=== PATIENT | female | born 1990 | race Caucasian/White ===

== ENCOUNTER 2020-03-11 06:12 | Outpatient (REF) | payer OTHER, SELFPAY | END 2020-03-11 06:13 | disposition home or self-care (01) | LOC: HO.LAB 06:12 | PROVIDERS: PCP Internal Medicine; Visit Provider Internal Medicine | DX: Z20.828 Contact with and (suspected) exposure to other viral communicable diseases (principal) | CPT/HCPCS: 87635 ==

== ENCOUNTER 2020-03-18 06:08 | Outpatient (REF) | payer OTHER, SELFPAY | END 2020-03-18 06:09 | disposition home or self-care (01) | LOC: HO.LAB 06:08 | PROVIDERS: PCP Internal Medicine; Visit Provider Internal Medicine | DX: Z20.828 Contact with and (suspected) exposure to other viral communicable diseases (principal) | CPT/HCPCS: 87635 ==

== ENCOUNTER 2020-06-07 10:41 | Outpatient (REF) | payer OTHER, SELFPAY | END 2020-06-07 10:42 | disposition home or self-care (01) | LOC: HO.LAB 10:41 | PROVIDERS: Visit Provider Internal Medicine | DX: Z20.822 Contact with and (suspected) exposure to COVID-19 (principal) | CPT/HCPCS: 36415; C9803; U0003 ==

== ENCOUNTER 2020-09-04 13:03 | Emergency (ER) | payer OTHER, SELFPAY ==
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
[2020-09-04 13:10] VITALS: BP 160/90; PULSE 100; O2SAT 100
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
[2020-09-04 14:38] VITALS: BP 140/82; PULSE 92; RESP 20; TEMP 36.9; O2SAT 97; BMI 32.3
[2020-09-04] MEDS: Cyclobenzaprine HCl 5 MG TABLET PO (14:45)
[2020-09-04] MEDS: Acetaminophen 325 MG TABLET 650 MG PO (14:45)
[2020-09-04] MEDS: traMADoL HCL 50 MG TABLET PO (17:52)
== END 2020-09-04 17:58 | disposition home or self-care (01) ==
PROVIDERS: Emergency Provider Emergency Medicine; PCP Internal Medicine
DX: S16.1XXA Strain of muscle, fascia and tendon at neck level, initial encounter (principal); V43.52XA Car driver injured in collision with other type car in traffic accident, initial encounter; W22.11XA Striking against or struck by driver side automobile airbag, initial encounter; R07.89 Other chest pain; M79.10 Myalgia, unspecified site; R51.9 Headache, unspecified; Y93.89 Activity, other specified; Y92.414 Local residential or business street as the place of occurrence of the external cause; Y99.9 Unspecified external cause status
CPT/HCPCS: 70450; 71101; 72125; 73000; 99283; 99284

== ENCOUNTER 2022-08-02 10:23 | Emergency (ER) | payer OTHER, SELFPAY ==
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
[2022-08-02 10:36] VITALS: BP 107/72; PULSE 82; RESP 20; TEMP 36.5; O2SAT 97; BMI 28.1
[2022-08-02] MEDS: Diphth,Pertus(ACell),Tet Adult 0.5 ML SYRINGE IM (15:11)
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
== END 2022-08-02 17:24 | disposition home or self-care (01) ==
PROVIDERS: Emergency Provider Emergency Medicine; PCP Internal Medicine
DX: S00.81XA Abrasion of other part of head, initial encounter (principal); Y04.8XXA Assault by other bodily force, initial encounter; R51.9 Headache, unspecified; Y93.9 Activity, unspecified; Y92.9 Unspecified place or not applicable; Y99.9 Unspecified external cause status
CPT/HCPCS: 70450; 70486; 72125; 90471; 90715; 99282; 99283; 99284

== ENCOUNTER 2023-03-19 02:36 | Emergency (ER) | payer OTHER, SELFPAY ==
--- NOTE | 2023-03-19 | ECG_ITS ---
Test Reason : CHEST PAIN Blood Pressure : / mmHG Vent. Rate : 078 BPM Atrial Rate : 078 BPM P-R Int : 148 ms QRS Dur : 068 ms QT Int : 376 ms P-R-T Axes : 049 009 017 degrees QTc Int : 428 ms Normal sinus rhythm Normal ECG No previous ECGs available Referred By: Generic ED Physician Electronically Signed By:ANDRES SEGURA MD
--- NOTE | ~2023-03-19 | XR_ITS ---
EXAMINATION: XR CHEST CLINICAL INFORMATION: Acute right-sided pain COMPARISON: 09/04/2020 TECHNIQUE: Frontal view of the chest was obtained. FINDINGS: The lungs are clear with no focal consolidation. No evidence of pneumothorax, pulmonary edema, or pleural effusions. The cardiomediastinal silhouette is unremarkable. No acute osseous findings. XR/XR chest 1V IMPRESSION: No acute cardiopulmonary findings.
[2023-03-19 02:55] VITALS: BP 122/81; PULSE 77; RESP 16; TEMP 36.5; O2SAT 98; BMI 28.3
[2023-03-19 03:52] LABS: COVID-19 Test Negative (Negative); IDNOW Serial# 08D9AD1C; IDNOW Serial# BCCEAD1C; Influenza A Negative (Negative); Influenza B2 Negative (Negative)
--- NOTE | 2023-03-19 07:27 | ED_ITS ---
HPI - Chest Pain General Chief Complaint: Chest Pain Stated Complaint: Sharp rib cage pain Time Seen by Provider: 03/19/23 07:10 Source: patient Mode of arrival: ambulatory Limitations: no limitations History of Present Illness HPI narrative: Patient been coughing last 2 weeks which is getting better now 5 days ago patient coughed and noticed pain in the right lower ribs area since then having pain which seems she takes a deep breath no abdominal pain no nausea no vomiting no shortness of breath Related Data Previous Rx's Medication Instructions Recorded acetaminophen 500 mg tablet 500 mg PO Q6H PRN pain or fever 09/04/20 (Tylenol Extra Strength) #20 tabs cyclobenzaprine 5 mg tablet 5 mg PO Q8H PRN pain (scale score 09/04/20 7-10) 5 days #14 tabs lidocaine 5 % topical patch 1 patch topical DAILY PRN pain #30 09/04/20 (Lidoderm) ea naproxen 500 mg tablet 500 mg PO BID PRN pain 10 days #20 09/04/20 tabs neomycin-bacitracn Zn-polymyx 3.5 1 appl topical BID #28.3 grams 09/04/20 mg-400 unit-5,000 unit/gram top oint (Neosporin ([id number])) tramadol 50 mg tablet 50 mg PO Q8H PRN pain, severe 3 09/04/20 days #9 tabs bacitracin 500 unit/gram topical 1 appl topical TID 7 days #28 grams 08/02/22 ointment naproxen 500 mg tablet 500 mg PO BID PRN pain 7 days #14 08/02/22 tabs tramadol 50 mg tablet 50 mg PO Q6H PRN pain #20 tabs 03/19/23 Allergies Allergy/AdvReac Type Severity Reaction Status Date / Time metformin AdvReac Diarrhea Verified 03/19/23 03:04 Review of Systems Review of Systems: Yes all other systems are reviewed and are negative PMFSH Social History Social History Alcohol intake: current Alcohol intake frequency: a few times a week Smoked in Last 30 Days: Yes Use of substances other than those prescribed or required for medical reasons: No Advance Directives: No Advance Directives Information Provided: Yes Physical Exam Vital Signs: Vital Signs: Last Vital Signs Temp 97.7 F 03/19/23 02:55 Pulse 80 03/19/23 07:39 Resp 18 03/19/23 07:39 BP 130/93 H 03/19/23 07:39 Pulse Ox 98 03/19/23 07:39 O2 Del Method Room Air 03/19/23 07:39 BMI result Body Mass Index 28.3 Appearance: Alert. Oriented X3. No acute distress. ENT: Pharynx normal. Oral Mucosa moist Neck: Normal inspection. Neck supple. CVS: Normal heart rate and rhythm. Pulses normal. Respiratory: No respiratory distress. Equal air entry bilateral, no wheezing/rales/rhonchi right chest wall lower rib tenderness no crepitus no deformity Abdomen: Soft and nontender. Bowel sounds are present, no mass palpable, no CVA tenderness Skin: Skin warm and dry. Normal skin color. Normal skin turgor. Extremities: No lower extremity edema. No calf tenderness Neuro: Oriented X 3. Medications Administered Discontinued Medications Generic Name Dose Route Start Last Admin Trade Name Freq PRN Reason Stop Dose Admin Tramadol HCl 50 mg 03/19/23 07:27 03/19/23 07:42 Tramadol Hcl 50 Mg Tablet PO 03/19/23 07:28 50 mg ONCE ONE Administration Medical Decision Making Medical Decision Making MDM Narrative: Patient's x-ray negative for fracture or pneumonia pain is musculoskeletal discharge patient home or possible minor rib fracture Differential Diagnosis Differential Diagnoses: The differential diagnosis associated with the presentation includes Rib fracture/pleurisy/pneumonia/ Lab Data [facility] Lab Attestation statement: I reviewed the patient's lab results. Labs: Lab Results 03/19/23 Range/Units 03:29 COVID-19 (ARELIS) Negative (Negative) COVID-19 Clin Com See Note Influenza Type A (JAMILA) Negative (Negative) Influenza Type B (JAMILA) Negative (Negative) Influenza A & B Note See Note Radiology Impression Discussion of test interpretation with radiology: I have reviewed the radiologist's reading. Discharge Plan Discharge Clinical Impression: Right-sided chest wall pain Patient Disposition: Home, Self-Care Instructions: Noncardiac Chest Pain (ED) Additional Instructions: Take pain medication as prescribed Likely have right lower rib muscle strain Prescriptions: New tramadol 50 mg tablet 50 mg PO Q6H PRN (Reason: pain) Qty: 20 0RF No Action acetaminophen [Tylenol Extra Strength] 500 mg tablet 500 mg PO Q6H PRN (Reason: pain or fever) Qty: 20 0RF lidocaine [Lidoderm] 5 % adhesive patch,medicated 1 patch topical DAILY MDD remove after 12 hours PRN (Reason: pain) Qty: 30 0RF Rx Instructions: leave on most painful area for up to 12 hrs naproxen 500 mg tablet 500 mg PO BID PRN (Reason: pain) 10 Days Qty: 20 0RF cyclobenzaprine 5 mg tablet 5 mg PO Q8H PRN (Reason: pain (scale score 7-10)) 5 Days Qty: 14 0RF tramadol 50 mg tablet 50 mg PO Q8H PRN (Reason: pain, severe) 3 Days Qty: 9 0RF Neosporin ([id number]-[id number]-[id number]) 3.5mg-400 unit- 5,000 unit/gram ointment 1 appl topical BID Qty: 28.3 0RF naproxen 500 mg tablet 500 mg PO BID PRN (Reason: pain) 7 Days Qty: 14 0RF bacitracin 500 unit/gram ointment 1 appl topical TID 7 Days Qty: 28 0RF Interventions: ED Discharge Assessment Last Done: 03/19/23 07:48 Discharge Date/Time: 03/19/23 07:49
[2023-03-19 07:39] VITALS: BP 130/93; PULSE 80; RESP 18; O2SAT 98
[2023-03-19] MEDS: traMADoL HCL 50 MG TABLET PO (07:42)
== END 2023-03-19 07:49 | disposition home or self-care (01) ==
PROVIDERS: Emergency Provider Internal Medicine
DX: R07.89 Other chest pain (principal); R05.9 Cough, unspecified; Z11.52 Encounter for screening for COVID-19
CPT/HCPCS: 71045; 87502; 87635; 93005; 99283; 99285

== ENCOUNTER 2023-12-15 06:37 | Emergency (ER) | payer OTHER, SELFPAY ==
--- NOTE | ~2023-12-15 | XR_ITS ---
EXAMINATION: XR WRIST, RIGHT CLINICAL INFORMATION: Pain, injury COMPARISON: None available. TECHNIQUE: PA, lateral, and oblique views of the right wrist. FINDINGS: The distal radius, ulna and radioulnar joint are normal. Carpal bones are intact and have normal alignment. The joint spaces of the wrist are maintained. There is no arthritic disease. There is no evidence of a radiopaque foreign body or soft tissue gas. XR/XR wrist RT min 3V IMPRESSION: No acute osseous injury. No fracture or malalignment at the right wrist.
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
[2023-12-15 06:44] VITALS: BP 140/90; BP 169/73; PULSE 79; PULSE 89; RESP 14; TEMP 36.8; O2SAT 99; BMI 28.3
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
[2023-12-15 07:49] VITALS: BP 128/78; PULSE 71; RESP 14; TEMP 36.8; O2SAT 98
[2023-12-15] MEDS: oxyCODONE HCl Immed Release 5 MG TABLET PO (09:18)
[2023-12-15 09:24] VITALS: BP 128/78; PULSE 71; RESP 14; TEMP 36.8; O2SAT 98
== END 2023-12-15 09:25 | disposition home or self-care (01) ==
PROVIDERS: Emergency Provider Emergency Medicine Emergency Medical Services; PCP Internal Medicine Endocrinology, Diabetes & Metabolism
DX: S60.811A Abrasion of right wrist, initial encounter (principal); S09.90XA Unspecified injury of head, initial encounter; V47.5XXA Car driver injured in collision with fixed or stationary object in traffic accident, initial encounter; W22.10XA Striking against or struck by unspecified automobile airbag, initial encounter; Y93.9 Activity, unspecified; Y92.9 Unspecified place or not applicable; Y99.9 Unspecified external cause status; M54.2 Cervicalgia; E11.9 Type 2 diabetes mellitus without complications
CPT/HCPCS: 70450; 72125; 73110; 99284

== ENCOUNTER 2024-07-02 09:44 | Emergency (ER) | payer OTHER, SELFPAY ==
--- NOTE | 2024-07-02 | ECG_ITS ---
Test Reason : CP Blood Pressure : */* mmHG Vent. Rate : 106 BPM Atrial Rate : 106 BPM P-R Int : 122 ms QRS Dur : 68 ms QT Int : 360 ms P-R-T Axes : 23 8 18 degrees QTcB Int : 478 ms Sinus tachycardia with occasional Premature ventricular complexes Possible Left atrial enlargement Borderline ECG When compared with ECG of 19-Mar-2023 03:25, Premature ventricular complexes are now Present Referred By: Generic ED Physician Electronically Signed By: Collin Gan
[2024-07-02 09:52] VITALS: BP 144/71; PULSE 108; RESP 18; TEMP 36.3; O2SAT 100; BMI 33.0
[2024-07-02 10:10] LABS: Baso%MD 0.6 %; Eos%MD 1.2 %; Hematocrit 30.5 % (37.0-47.0); Hemoglobin 10.3 g/dl (12.0-16.0); IG%MD 2.2 %; Lymph%MD 3.4 %; Mean Corpuscular HGB Conc 33.8 g/dl (31.0-35.0); Mean Corpuscular Volume 82.9 fL (80.0-98.0); Mean Platelet Volume 9.1 fL (9.4-12.3); Mono%MD 6.6 %; Platelet Count 211 X10*3/uL (160-400); Red Blood Count 3.68 X10*6/uL (4.20-5.50); Red Cell Distribution Width 13.5 % (11.0-16.0); White Blood Count 12.2 X10*3/uL (4.8-10.8)
[2024-07-02 10:35] LABS: Alanine Aminotransferase 26 U/L (0-31); Albumin Level 3.7 g/dL (3.5-5.0); Alkaline Phosphatase 83 U/L (39-117); Anion Gap 14 (12-20); Aspartate Amino Transferase 37 U/L (5-31); Bilirubin Total 0.3 mg/dL (0.0-1.0); Blood Urea Nitrogen 6 mg/dL (9-16); Calcium 8.4 mg/dL (8.4-10.2); Carbon Dioxide 20 mmol/L (22-29); Chloride 104 mmol/L (96-108); Creatinine Clr Calc Pharmacy 152.7; Estimated Glomerular Filt Rate > 60; Glucose Random 115 mg/dL (60-115); Magnesium 1.5 mg/dL (1.6-2.6); Potassium 3.7 mmol/L (3.3-5.1); Sodium 134 mmol/L (135-145); Total Protein 7.1 g/dL (6.5-8.0)
[2024-07-02 10:43] LABS: Troponin-I High Sensitivity < 2.7 ng/L (<3.5-17.0)
[2024-07-02 10:50] LABS: Band Neutrophils Percent 2 % (3-5); Basophils Abs Manual 0.4 X10*3/uL (0.0-0.2); Basophils Percent Manual 3 % (0-2); Eosinophils Absolute Manual 0.4 X10*3/uL (0.0-0.4); Eosinophils Percent Manual 3 % (0-4); Lymphocytes Absolute Manual 0.1 X10*3/uL (1.2-4.9); Lymphocytes Percent Manual 1 % (20-40); Monocytes Absolute Manual 0.6 X10*3/uL (0.1-1.2); Monocytes Percent Manual 5 % (2-11); Neutrophils Absolute Manual 10.7 X10*3/uL (2.0-8.3); Neutrophils Percent Manual 86 % (45-73)
[2024-07-02 10:52] LABS: RBC Morphology NORMAL
[2024-07-02 10:53] LABS: Platelet Estimate NORMAL (NORMAL); Platelet Morphology Comment NORMAL
[2024-07-02 11:16] LABS: Influenza A PCR POSITIVE (Negative); Influenza B PCR NEGATIVE (Negative); Resp Syncy Virus RNA Qual PCR NEGATIVE (Negative); SARS COV2 PCR INHOUSE NEGATIVE (Negative)
[2024-07-02 11:24] LABS: HCG Quantitative 27220 mIU/mL
[2024-07-02 13:55] VITALS: BP 127/72; PULSE 107; RESP 20; TEMP 36.8; O2SAT 99
--- NOTE | 2024-07-02 13:57 | ED_ITS ---
HPI - Chest Pain General Chief Complaint: Chest Pain Stated Complaint: Chest pain 26 weeks preg Time Seen by Provider: 07/02/24 13:57 History of Present Illness ED Provider: Korina SPARROW narrative: The patient is a 34-year-old female who was approximately 26 weeks . She gets her OBGYN care through [facility]. She says that yesterday evening she became fairly abruptly ill with a sense of fever and chills, body aches, and chest pain. She says that she vomited once this morning. She feels somewhat nauseated. She has had sick contacts at home. One of her children became ill with flu-like symptoms about 3 days ago. Related Data Previous Rx's ?Medication ?Instructions ?Recorded acetaminophen 500 mg tablet 500 mg PO Q6H PRN pain or fever 09/04/20 (Tylenol Extra Strength) #20 tabs cyclobenzaprine 5 mg tablet 5 mg PO Q8H PRN pain (scale score 09/04/20 7-10) 5 days #14 tabs lidocaine 5 % topical patch 1 patch topical DAILY PRN pain #30 09/04/20 (Lidoderm) ea naproxen 500 mg tablet 500 mg PO BID PRN pain 10 days #20 09/04/20 tabs neomycin-bacitracn Zn-polymyx 3.5 1 appl topical BID #28.3 grams 09/04/20 mg-400 unit-5,000 unit/gram top oint (Neosporin (ira-xit-qlaxl)) tramadol 50 mg tablet 50 mg PO Q8H PRN pain, severe 3 09/04/20 days #9 tabs bacitracin 500 unit/gram topical 1 appl topical TID 7 days #28 grams 08/02/22 ointment naproxen 500 mg tablet 500 mg PO BID PRN pain 7 days #14 08/02/22 tabs tramadol 50 mg tablet 50 mg PO Q6H PRN pain #20 tabs 03/19/23 cyclobenzaprine 5 mg tablet 5 mg PO TID PRN pain 7 days #21 12/15/23 tabs oseltamivir 75 mg capsule 75 mg PO BID 5 days #9 caps 07/02/24 Allergies Allergy/AdvReac Type Severity Reaction Status Date / Time metformin AdvReac Diarrhea Verified 07/02/24 09:55 Review of Systems 2 Review of Systems: Yes all other systems are reviewed and are negative [facility] Social History Social History Alcohol intake: current Alcohol intake frequency: a few times a week Smoked in Last 30 Days: No Use of substances other than those prescribed or required for medical reasons: No Advance Directives: No Advance Directives Information Provided: Yes Do you have a plan to hurt others: No Plan Physical Exam 2 Vital Signs: Vital Signs: Last Vital Signs Temp 98.0 F 07/02/24 16:06 Pulse 108 H 07/02/24 16:06 Resp 16 07/02/24 16:06 BP 129/80 07/02/24 16:06 Pulse Ox 98 07/02/24 16:06 O2 Del Method Room Air 07/02/24 13:55 BMI result Body Mass Index 33.0 Const: Other: The patient is awake and alert. She looks as if you have feel somewhat unwell but her mental status is clear and she does not seem in obvious respiratory difficulty or pain. HEENT: Other: Face symmetrical. Mucous membranes are moist. Eyes: General: appearance normal, both eyes and all related structures A lignment and Position: alignment normal Periorbital: periorbital findings normal Eyelids: Yes eyelids normal Conjunctivae: conjunctivae normal S clerae: sclerae normal Pupils: Equal, round and reactive pupils present E OM: EOMs intact bilaterally Neck: Neck: Yes full ROM, Yes no lymphadenopathy and Yes no JVD Resp: Effort & Inspection: normal respiratory effort and able to speak in complete sentences Auscultation: clear to auscultation bilaterally Cardio: Rate: tachycardic Rhythm: regular rhythm Heart sounds: S1 normal heart sound present and S2 normal heart sound present GI: Other: The abdomen is gravid with the fundus of the uterus roughly at the level of the umbilicus. The abdomen is soft and nontender. Who Skin: Other: skin is dry and unremarkable Neuro: Other: the patient is awake and alert with normal mental status. Cranial nerves are intact. She moves her extremities normally and appropriately Cranial nerves: Yes Equal, round and reactive pupils present Extrem: Other: no peripheral edema who Medications Administered Discontinued Medications Generic Name Dose Route Start Last Admin Trade Name Freq PRN Reason Stop Dose Admin Acetaminophen 975 mg 07/02/24 14:01 07/02/24 14:12 Acetaminophen 325 Mg Tablet PO 07/02/24 14:02 975 mg ONCE ONE Administration Oseltamivir Phosphate 75 mg 07/02/24 14:05 07/02/24 14:12 Oseltamivir Phosphate 75 Mg Capsule PO 07/02/24 14:06 75 mg ONCE ONE Administration Medical Decision Making Medical Decision Making [facility] Narrative: the patient is a 34-year-old woman who is approximately 26 weeks started to feel ill yesterday evening. She describes a lot of systemic symptoms and pulmonary symptoms. She does not appear obviously acutely ill. a review of 0 salt time of urine suggest that also time of year in women with influenza is generally thought to be safe and possibly beneficial. The patient was therefore started on oseltamivir. She seemed to feel somewhat better and seemed appropriate for discharge with her family. Lab Data 07/02/24 10:05 07/02/24 10:05 Labs: Lab Results 07/02/24 07/02/24 Range/Units 10:05 14:13 WBC 12.2 H (4.8-10.8) X10*3/uL RBC 3.68 L (4.20-5.50) X10*6/uL Hgb 10.3 L (12.0-16.0) g/dl Hct 30.5 L (37.0-47.0) % MCV 82.9 (80.0-98.0) fL MCH 28.0 (27.0-33.0) pg MCHC 33.8 (31.0-35.0) g/dl RDW 13.5 (11.0-16.0) % Plt Count 211 (160-400) X10*3/uL MPV 9.1 L (9.4-12.3) fL Absolute Nucleated RBC 0.000 (0.0-0.012) X10*3/uL Nucleated RBC % (auto) 0.0 (0.0-0.2) /100WBC Neutrophils % (Manual) 86 H (45-73) % Band Neutrophils % 2 L (3-5) % Lymphocytes % (Manual) 1 L (20-40) % Monocytes % (Manual) 5 (2-11) % Eosinophils % (Manual) 3 (0-4) % Basophils % (Manual) 3 H (0-2) % Abs Neuts (Manual) 10.7 H (2.0-8.3) X10*3/uL Lymphocytes # (Manual) 0.1 L (1.2-4.9) X10*3/uL Monocytes # (Manual) 0.6 (0.1-1.2) X10*3/uL Eosinophils # (Manual) 0.4 (0.0-0.4) X10*3/uL Basophils # (Manual) 0.4 H (0.0-0.2) X10*3/uL Platelet Estimate NORMAL (NORMAL) Plt Morphology Comment NORMAL RBC Morphology NORMAL Sodium 134 L (135-145) mmol/L Potassium 3.7 (3.3-5.1) mmol/L Chloride 104 (96-108) mmol/L Carbon Dioxide 20 L (22-29) mmol/L Anion Gap 14 (12-20) BUN 6 L (9-16) mg/dL Creatinine 0.57 (0.5-1.4) mg/dL Estim Creat Clear Calc 152.7 Estimated GFR > 60 Random Glucose 115 (60-115) mg/dL Calcium 8.4 (8.4-10.2) mg/dL Magnesium 1.5 L (1.6-2.6) mg/dL Total Bilirubin 0.3 (0.0-1.0) mg/dL AST 37 H (5-31) U/L ALT 26 (0-31) U/L Alkaline Phosphatase 83 (39-117) U/L Troponin I High Sens < 2.7 (<3.5-17.0) ng/L Total Protein 7.1 (6.5-8.0) g/dL Albumin 3.7 (3.5-5.0) g/dL Tumor Marker HCG Cancelled Beta HCG, Quant 19367 mIU/mL Urine Color Dark Yellow Urine Appearance Cloudy Urine pH 6.0 (5.0-9.0) Ur Specific [place] >= 1.030 H (1.005-1.025) Urine Protein 30 (1+) H (Neg-Trace) mg/dL Urine Glucose (UA) Negative (Negative) mg/dL Urine Ketones >=160 (Negative) mg/dL Urine Blood Negative (Negative) Urine Nitrite Negative (Negative) Ur Leukocyte Esterase Negative (Negative) Urine RBC 0-2 (0-2) /HPF Urine WBC 0-5 (0-5) /HPF Ur Squamous Epith Cells 11-20 (0-2) /HPF Urine Bacteria 1+ (None Seen) Hyaline Casts 0-2 (0-2) /LPF Urine Test POSITIVE H (NEGATIVE) Influenza Type A (PCR) POSITIVE A (Negative) Influenza Type B (PCR) NEGATIVE (Negative) RSV RNA Qual (PCR) NEGATIVE (Negative) SARS-CoV-2 RNA (RT-PCR) NEGATIVE (Negative) Discharge Plan Discharge Clinical Impression: Influenza A, 26 weeks gestation of Patient Disposition: Home, Self-Care Instructions: Influenza (ED) Additional Instructions: You have tested positive for the flu today. Specifically you have tested positive for influenza A. You has been started on an anti influenza medication oseltamivir. This is a medication generally recommended in . This medication should be taken 2 times a day, approximately every 12 hours. You received your dose at around 14:00 this afternoon. Try to take your next dose around midnight and then the one after that in the morning. You may take acetaminophen as needed for fevers or aches. Please stay in touch with your [facility] obstetrical team for additional advice as needed. Call them if any concerns. If significantly worse return to the emergency room here or go to [facility]. Prescriptions: New oseltamivir 75 mg capsule 75 mg PO BID 5 Days Qty: 9 0RF No Action acetaminophen [Tylenol Extra Strength] 500 mg tablet 500 mg PO Q6H PRN (Reason: pain or fever) Qty: 20 0RF lidocaine [Lidoderm] 5 % adhesive patch,medicated 1 patch topical DAILY MDD remove after 12 hours PRN (Reason: pain) Qty: 30 0RF Rx Instructions: leave on most painful area for up to 12 hrs naproxen 500 mg tablet 500 mg PO BID PRN (Reason: pain) 10 Days Qty: 20 0RF cyclobenzaprine 5 mg tablet 5 mg PO Q8H PRN (Reason: pain (scale score 7-10)) 5 Days Qty: 14 0RF tramadol 50 mg tablet 50 mg PO Q8H PRN (Reason: pain, severe) 3 Days Qty: 9 0RF Neosporin (vui-evi-flnbi) 3.5mg-400 unit- 5,000 unit/gram ointment 1 appl topical BID Qty: 28.3 0RF naproxen 500 mg tablet 500 mg PO BID PRN (Reason: pain) 7 Days Qty: 14 0RF bacitracin 500 unit/gram ointment 1 appl topical TID 7 Days Qty: 28 0RF cyclobenzaprine 5 mg tablet 5 mg PO TID PRN (Reason: pain) 7 Days Qty: 21 0RF tramadol 50 mg tablet 50 mg PO Q6H PRN (Reason: pain) Qty: 20 0RF Referrals: Ethan Kc MD [Primary Care Provider] - (Influenza, ) Stand Alone Forms: Work/School Release Interventions: ED Discharge Assessment Last Done: 07/02/24 16:06 Discharge Date/Time: 07/02/24 16:07 Print Language: Irish
[2024-07-02] MEDS: Oseltamivir Phosphate 75 MG CAPSULE PO (14:12)
[2024-07-02] MEDS: Acetaminophen 325 MG TABLET 975 MG PO (14:12)
[2024-07-02 14:23] LABS: Appearance Urine Cloudy; Color Urine Dark Yellow; Glucose Urine UA Negative (Negative); Leukocyte Esterase Urine Negative (Negative); Nitrite Urine Negative (Negative); Specific Gravity - Urine >= 1.030 (1.005-1.025); UMIC TRIGGER UACC YES; UPreg QC Valid YES; Urine Blood Negative (Negative); Urine Ketones >=160 mg/dL (Negative); Urine Pregnancy POSITIVE (NEGATIVE); Urine Protein 30 (1+) mg/dL (Neg-Trace)
[2024-07-02 14:30] LABS: Bacteria Urine 1+ (None Seen); Hyaline Casts Urine 0-2 /LPF (0-2); RBC Urine 0-2 /HPF (0-2); WBC Urine 0-5 /HPF (0-5)
--- OUTSIDE RECORDS SUMMARY | 2024-07-02 15:06 | XMS_ITS | Clinical Summary ---
Author Organization [facility] Address [address] [place] [address] Care Team Providers Care Scrap Cutter Name Role Phone Napoleon Tineo MD Primary Care Provider [phone] Allergies Active Allergy Reactions Criticality Noted Date Comments Biguanides Diarrhea Low 06/30/2009 Medications Medication Sig Dispensed Refills Start Date End Date Status Vitamin iron fum-folic acid 27-0.8 mg per tablet Take 1 tablet by mouth 1 (one) time each day. 01/19/2024 Active insulin glargine (Lantus Solostar U-100 Insulin) 100 unit/mL (3 mL) injection pen Inject 36 Units under the skin 1 (one) time each day in the morning. 03/20/2024 Active FREESTYLE LANCETS MISC Inject under the skin 1 (one) time each day. 08/19/2023 Active azelastine (OPTIVAR) 0.05 % ophthalmic solution Administer 1 drop into affected eye(s) 2 (two) times a day. 08/09/2023 09/02/2024 Active fluticasone propionate (FLONASE) 50 mcg/actuation nasal spray Administer 2 sprays into affected nostril(s) 1 (one) time each day. 08/09/2023 Active cetirizine (ZyrTEC) 10 mg tablet Take 1 tablet (10 mg total) by mouth 1 (one) time each day. 08/09/2023 Active blood sugar diagnostic (FreeStyle Lite Strips) test strip USE 1 STRIP TO TEST BLOOD SUGARS 3 TIMES DAILY BEFORE MEALS 05/09/2023 Active insulin lispro (HumaLOG KwikPen Insulin) 100 unit/mL injection pen Before meals as directed per sliding scale three times a day, up to 45 units daily. 05/09/2023 Active cyclobenzaprine (FLEXERIL) 10 mg tablet Take 1 tablet (10 mg total) by mouth at bedtime as needed. 09/13/2022 Active blood-glucose meter kit As directed 4 times a day 10/20/2021 Active lidocaine (LIDODERM) 5 % patch Place 1 patch on the skin. 05/14/2021 Active diclofenac (VOLTAREN) 1 % topical gel Apply 4 g topically. 09/26/2020 Active blood-glucose sensor (FREESTYLE DAISY 3 PLUS SENSOR MISC) 1 applicator by Not Applicable route every 14 (fourteen) days. 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 Low back pain radiating to left leg 10/07/2010 Type 2 diabetes mellitus with microalbuminuria 1 07/08/2007 Overview (05/31/2024): [facility] endocrinology Encounters Date Type Department Care Team Description 04/05/2024 Telephone Endocrinology - [address] [place] [address] Ethan Kc MD prior authorization from Last 3 Months Immunizations Name Administration Dates Next Due HPV, Quadrivalent 05/16/2013,01/16/2013,11/15/19 13 Influenza Quadravalent, MDCK , 0.5ml, preservative free (Flucelvax) 6mo and older 02/18/2023 Influenza Quadravalent, MDCK , 0.5ml, with preservative (Flucelvax) 6mo and older 03/21/2017 Influenza trivalent, 0.5mL, preservative free (Fluarix; FluLaval; Fluzone) ages 6mo and older (Afluria) 3 years and older 02/04/2020,03/23/2018,03/17/2016,03/25,04/17/2014,06/08/2012,03/01/2011 ,05/07/2008 Influenza, Unspecified 02/14/2019,03/23/2018 Pneumococcal polysaccharide 23 valent (Pneumovax 23) 2yo and older 06/08/2012 Tdap Tetanus diptheria acell ular pertussis (Boostrix; Adacel) 7yo and older 09/12/2014,11/14/2012 Surgical History Surgery Date Site/Laterality Comments MULTIPLE TOOTH EXTRACTIONS PROCEDURE: HISTORICAL DENTAL EXTRACTION OTHER SURGICAL HISTORY 04/19/2019 Right PROCEDURE: HI CORRECTION COCK-UP 5TH TOE W/PLASTIC CLOSURE; COMMENT: derotational arthroplasty right 5th toe Medical History Medical History Date Comments Historical Medical DX 05/07/2008 DX:Diabete s Diabetic retinopathy ([facility]) 10/29/2014 D X:Diabetic retinopathy ([facility]); COMMENT: 10/16/2014: [facility] (Dr. Moreno) Family History Medical History Relation Name Comments No Known Problems Brother 1 No Known Problems Brother 2 No Known Problems Daughter Diabetes Father No Known Problems Maternal Grandfather No Known Problems Maternal Grandmother di ed in hospital Diabetes Mother No Known Problems Paternal Grandfather No Known Problems Paternal Grandmother No Known Problems Son Breast cancer Neg Hx Colon cancer Neg Hx Heart attack Neg Hx Relation Name Status Comments Brother 1 Alive Brother 2 Alive Daughter Alive Father Alive Maternal Grandfather Maternal Grandmother Mother Alive Paternal Grandfather Paternal Grandmother Son Alive Social History Tobacco Use Types Packs/Day Years Used Date Smoking Tobacco: Never Smokeless Tobacco: Never Alcohol Use Standard Drinks/Week Comments No 0 (1 standard drink = 0.6 oz pur e alcohol) Sex and Gender Information Value Date Recorded Sex Assigned at Not on file Gender Identity Not on file Sexual Orientation Not on file Obstetrics History Last Filed Vital Signs Vital Sign Reading Time Taken Comments Blood Pressure 130/70 02/14/2024 1:21 PM EDT Pulse 85 02/14/2024 1:21 PM EDT Temperature - - Respiratory Rate - - Oxygen Saturation - - Inhaled Oxygen Concentration - - Weight 84.4 kg (186 lb) 02/14/2024 1:21 PM EDT Height 165.1 cm (5' 5 ) 02/14/2024 1:21 PM EDT Body Mass Index 30.95 02/14/2024 1:21 PM EDT Plan of Treatment Health Maintenance Due Date Last Done Comments Diabetes: Annual GFR (Glomerular Filtration Rate) 1989 Diabetes: Annual Foot Exam 1999 Diabetes: Annual Retina Eye Exam 1999 Hepatitis B Vaccines (1 of 3 - 19+ 3-dose series) 2008 Pneumococcal Vaccine: Pediatrics (0 to 5 Years) and At-Risk Patients (6 to 64 Years) (2 of 2 - PCV) 06/08/2013 06/08/2012 Depression Screening 05/08/2022 HIV Screening 05/08/2022 Social Influencers of Health Screening 05/08/2022 COVID-19 Vaccine (3 - season) 2024 08/01/2020, 07/11/2020 Influenza Vaccine (#1) 2024 , 02/04/2020, 02/14/2019, Additional history exists DTaP,Tdap,and Td Vaccines (3 - Td or Tdap) 09/12/2024 09/12/2014, 11/14/2012 Diabetes: Blood Sugar Control Test (HGBA1C) 09/26/2024 03/29/2024, 03/29/2024 Diabetes: Annual Urine Albumin-Creatinine Ratio (uACR) 03/29/2025 03/29/2024 Cervical Cancer Screening: HPV 04/04/2025 04/04/2020 Cholesterol Screening (Lipid Panel) 08/18/2028 08/19/2023 HPV Vaccines Completed 05/16/2013, 08/, 11/14/2012 Hepatitis C Screening Completed 07/03/2015 HIB Vaccines Aged Out No longer eligi ble based on patient's age to complete this topic Hepatitis A Vaccines Aged Out No long er eligible based on patient's age to complete this topic IPV Vaccines Aged Out No longer eligi ble based on patient's age to complete this topic MMR Vaccines Aged Out No longer eligi ble based on patient's age to complete this topic Meningococcal ACWY Vaccine Aged Out N o longer eligible based on patient's age to complete this topic RSV Immunization Patients Under 20 months Aged Out No longer eligible based on patient's age to complete this topic Varicella Vaccines Aged Out No longer eligible based on patient's age to complete this topic Procedures Procedure Name Priority Date/Time Associated Diagnosis Comments URINE ALBUMIN CREATININE RATIO Routine 03/29/2024 HEMOGLOBIN A1C Routine 03/29/2024 LIPID PANEL Routine 08/19/2023 HPV Routine 04/04/2020 HEPATITIS C SCREENING Routine 07/03/2015 from Last 3 Months or Most Recently Relevant to Health Maintenance Results * Urine Albumin Creatinine Ratio (03/29/2024) Pathologist [facility] Urine Albumin Creatinine Ratio abstracted Historical Provider MD JENIFER AYALA E * (ABNORMAL) Hemoglobin A1c (03/29/2024) Pathologist [facility] Hemoglobin A1C 6.9(A) 6.5 % Blood Venous blood specimen / Unknown Historical Provider LAB BLOOD ORDERAB LES * Lipid panel (08/19/2023) Pathologist [facility] LDL/HDL Ratio 2 0 - 4 Triglycerides 43 0 - 150 mg/dL Cholesterol 170 0 - 200 mg/dL HDL 85 40 mg/dL LDL Cholesterol 77 0 - 100 mg/dL Blood Venous blood specimen / Unknown Historical Provider LAB BLOOD ORDERAB LES * Cervical Cancer Screening: HPV (04/04/2020) Pathologist [facility] Cervical Cancer Screening: HPV negative, abstracted Historical Provider MD JENIFER Marmolejo * Hepatitis C Screening (07/03/2015) [facility] Hepatitis C Screening abstracted Historical Provider MD JENIFER Marmolejo from Last 3 Months or Most Recently Relevant to Health Maintenance Care Teams Scrap Cutter Relationship Specialty Start Date End Date Napoleon Tineo MD [address] [place] [address] PCP - General 04/20/23
[2024-07-02 16:06] VITALS: BP 129/80; PULSE 108; RESP 16; TEMP 36.7; O2SAT 98
== END 2024-07-02 16:07 | disposition home or self-care (01) ==
PROVIDERS: Emergency Provider Emergency Medicine; PCP Internal Medicine Endocrinology, Diabetes & Metabolism
DX: O26.92 Pregnancy related conditions, unspecified, second trimester (principal); J10.1 Influenza due to other identified influenza virus with other respiratory manifestations; R07.89 Other chest pain; Z3A.26 26 weeks gestation of pregnancy; Z79.899 Other long term (current) drug therapy; Z03.818 Encounter for observation for suspected exposure to other biological agents ruled out
CPT/HCPCS: 0241U; 80053; 81001; 81025; 83735; 84484; 84702; 85007; 85027; 93005; 99283; 99285

== ENCOUNTER → 2024-07-02 09:59 | Outpatient (BNV) | payer OTHER, SELFPAY | PROVIDERS: Emergency Provider Emergency Medicine; PCP Internal Medicine Endocrinology, Diabetes & Metabolism; Visit Provider Internal Medicine Cardiovascular Disease | DX: R07.9 Chest pain, unspecified (principal) | CPT/HCPCS: 93010 ==